=== PATIENT | female | born 1975 | race Caucasian/White ===

== ENCOUNTER 2017-03-03 16:34 | Emergency (ER) | payer SELFPAY ==
[2017-03-03] MEDS ORDERED: ASPIRIN 81 MG TABLET, CHEWABLE PO ONE (17:14)
[2017-03-03] MEDS ORDERED: MECLIZINE HCL 25 MG TABLET PO ONE (17:15)
[2017-03-03] MEDS ORDERED: IPRATROPIUM/ALBUTEROL 0.5-2.5 MG/3 ML AMPUL NEB ONE (17:15)
--- NOTE | 2017-03-03 17:16 | ER Document Report ---
ED Medical Screen (RME) - General Chief Complaint: Chest Pain Stated Complaint: CHEST PAIN,BACK PAIN,SHORTNESS OF BREATH Time Seen by Provider: 03/03/17 17:14 Mode of Arrival: Ambulatory Information source: Patient Notes: Patient presents complaining of productive cough for the past 3 months. Patient presents with chest pain that she describes as burning for the past 3 days. Patient does report shortness of breath and feeling off balance. Patient does have a history of asthma and COPD and is currently out of her albuterol inhaler. TRAVEL OUTSIDE OF THE [place] IN LAST 30 DAYS: No - Related Data Allergies/Adverse Reactions: latex [Latex] Allergy (Verified 03/03/17 16:47) Hives Past Medical History Pulmonary Medical History: Reports: Hx COPD Renal/ Medical History: Denies: Hx Peritoneal Dialysis Psychiatric Medical History: Reports: Hx Anxiety, Hx Bipolar Disorder, Hx Depression Past Surgical History: Reports: Hx Tubal Ligation - Immunizations Hx Diphtheria, Pertussis, Tetanus Vaccination: - unknown Physical Exam - Vital signs Vitals: Temp Pulse Resp BP Pulse Ox 97.9 F 79 20 154/91 H 98 03/03/17 16:44 03/03/17 16:44 03/03/17 16:44 03/03/17 16:44 03/03/17 16:44 - Respiratory Respiratory status: No respiratory distress Breath sounds: Nonproductive cough, Wheezing - faint Chest palpation: Tender - left anterior chest wall tenderness Course - Vital Signs Vital signs: Temp Pulse Resp BP Pulse Ox 97.9 F 79 20 154/91 H 98 03/03/17 16:44 03/03/17 16:44 03/03/17 16:44 03/03/17 16:44 03/03/17 16:44
[2017-03-03 18:11] LABS: ABSOLUTE EOSINOPHILS # (AUTO) 0.1 10^3/uL (0.0-0.6); ABSOLUTE LYMPHOCYTES (AUTO) 2.9 10^3/uL (0.5-4.7); ABSOLUTE MONOCYTES (AUTO) 0.4 10^3/uL (0.1-1.4); ABSOLUTE NEUT (AUTO) 4.2 10^3/uL (1.7-8.2); BASOPHILS % (AUTO) 0.6 % (0-2); EOSINOPHILS % (AUTO) 0.9 % (0-6); HEMATOCRIT 40.4 % (36.0-47.0); HEMOGLOBIN 13.6 g/dL (12.0-15.5); HGB HCT DIFFERENCE 0.4; MEAN CORPUSCULAR HEMOGLOBIN 29.5 pg (27.0-33.4); MEAN CORPUSCULAR HGB CONC 33.7 g/dL (32.0-36.0); MEAN CORPUSCULAR VOLUME 88 fl (80-97); MONOCYTES % (AUTO) 5.2 % (3-13); RED BLOOD COUNT 4.62 10^6/uL (3.72-5.28); RED CELL DISTRIBUTION WIDTH 14.4 % (11.5-14.0); SEGMENTED NEUTROPHILS % (AUTO) 55.3 % (42-78); WHITE BLOOD COUNT 7.6 10^3/uL (4.0-10.5)
[2017-03-03 18:30] LABS: ALANINE AMINOTRANSFERASE 29 U/L (9-52); ALBUMIN 4.8 g/dL (3.5-5.0); ALKALINE PHOSPHATASE 54 U/L (38-126); ANION GAP 11 (5-19); ASPARTATE AMINO TRANSFERASE 17 U/L (14-36); BILIRUBIN,DIRECT 0.4 mg/dL (0.0-0.4); BILIRUBIN,TOTAL 0.5 mg/dL (0.2-1.3); BLOOD UREA NITROGEN 9 mg/dL (7-20); CALCIUM 10.1 mg/dL (8.4-10.2); CARBON DIOXIDE 26 mmol/L (22-30); CHLORIDE 105 mmol/L (98-107); CREATINE KINASE 65 U/L (30-135); CREATININE RESULT 0.75 mg/dL (0.52-1.25); GLUCOSE 102 mg/dL (75-110); POTASSIUM 4.1 mmol/L (3.6-5.0); TOTAL PROTEIN 7.7 g/dL (6.3-8.2)
--- NOTE | 2017-03-03 18:33 | RADIOLOGY REPORT (SQ) ---
EXAM DESCRIPTION: CHEST PA/LAT COMPLETED DATE/TIME: 03/03/2017 6:07 pm REASON FOR STUDY: cp, cough COMPARISON: 09/13/2012 EXAM PARAMETERS: NUMBER OF VIEWS: two views TECHNIQUE: Digital Frontal and Lateral radiographic views of the chest acquired. RADIATION DOSE: NA LIMITATIONS: none FINDINGS: LUNGS AND PLEURA: No opacities, masses or pneumothorax. No pleural effusion. MEDIASTINUM AND HILAR STRUCTURES: No masses or contour abnormalities. HEART AND VASCULAR STRUCTURES: Heart normal size. No evidence for failure. BONES: No acute findings. HARDWARE: None in the chest. OTHER: No other significant finding. IMPRESSION: NO SIGNIFICANT RADIOGRAPHIC FINDING IN THE CHEST. TECHNICAL DOCUMENTATION: JOB ID: [id number] 2022 [employer]- All Rights Reserved
[2017-03-03 18:42] LABS: CREATINE KINASE MB 0.92 ng/mL (<4.55)
[2017-03-03 18:43] LABS: TROPONIN I < 0.012 ng/mL
[2017-03-03] MEDS ORDERED: DEXAMETHASONE 4 MG TABLET PO ONE (19:30)
[2017-03-03] MEDS ORDERED: ALBUTEROL SULFATE HFA (90 MCG/PUFF) 8 GM MDI (1 MDI/ER DISP) IH PRN (19:31)
[2017-03-03] MEDS ORDERED: BENZONATATE 100 MG CAPSULE PO ONE (19:31)
--- NOTE | 2017-03-03 20:49 | ER Document Report ---
ED General - General Chief Complaint: Chest Pain Stated Complaint: CHEST PAIN,BACK PAIN,SHORTNESS OF BREATH Time Seen by Provider: 03/03/17 17:14 Mode of Arrival: Ambulatory Notes: Patient is a 41-year-old female with a past medical history asthma, ongoing tobacco abuse who presents with 3 months of persistent, nonproductive cough. Patient states that she coughs throughout the day, often worse after smoking. She states that sometimes she coughs so vigorously that she occasionally develops a diffuse chest wall discomfort that sometimes lasts for several hours. She also notes associated back pain with vigorous episodes of coughing. She has been trying [id number] cough medicines without any significant relief her symptoms. She has not seen her primary care doctor regarding today' s concerns. She does note that she has run out of her albuterol inhaler at home did feel like this occasionally help when she would take it. She has not had any vomiting, fever, diarrhea, or altered mental status. TRAVEL OUTSIDE OF THE [place] IN LAST 30 DAYS: No - Related Data Allergies/Adverse Reactions: latex [Latex] Allergy (Verified 03/03/17 16:47) Hives Past Medical History - General Information source: Patient - Social History Smoking Status: Current Every Day Smoker Frequency of alcohol use: None Drug Abuse: None Lives with: Spouse/Significant other Family History: Reviewed & Not Pertinent Patient has suicidal ideation: No Patient has homicidal ideation: No Pulmonary Medical History: Reports: Hx COPD Renal/ Medical History: Denies: Hx Peritoneal Dialysis Psychiatric Medical History: Reports: Hx Anxiety, Hx Bipolar Disorder, Hx Depression Past Surgical History: Reports: Hx Tubal Ligation - Immunizations Hx Diphtheria, Pertussis, Tetanus Vaccination: - unknown Review of Systems - Review of Systems Notes: Constitutional: Negative for fever. HENT: Negative for sore throat. Eyes: Negative for visual changes. Cardiovascular: Negative for chest pain. Respiratory: Positive for cough Gastrointestinal: Negative for abdominal pain, vomiting or diarrhea. Genitourinary: Negative for dysuria. Musculoskeletal: Negative for back pain. Skin: Negative for rash. Neurological: Negative for headaches, weakness or numbness. 10 point ROS negative except as marked above and in HPI. Physical Exam - Vital signs Vitals: Temp Pulse Resp BP Pulse Ox 97.9 F 79 20 154/91 H 98 03/03/17 16:44 03/03/17 16:44 03/03/17 16:44 03/03/17 16:44 03/03/17 16:44 Interpretation: Hypertensive Notes: PHYSICAL EXAMINATION: GENERAL: Well-appearing, well-nourished and in no acute distress. HEAD: Atraumatic, normocephalic. EYES: Pupils equal round and reactive to light, extraocular movements intact, sclera anicteric, conjunctiva are normal. ENT: nares patent, oropharynx clear without exudates. Moist mucous membranes. NECK: Normal range of motion, supple without lymphadenopathy LUNGS: Breath sounds clear to auscultation bilaterally and equal. No wheezes rales or rhonchi. HEART: Regular rate and rhythm without murmurs ABDOMEN: Soft, nontender, normoactive bowel sounds. No guarding, no rebound. No masses appreciated. EXTREMITIES: Normal range of motion, no pitting or edema. No cyanosis. NEUROLOGICAL: No focal neurological deficits. Moves all extremities spontaneously and on command. PSYCH: Normal mood, normal affect. SKIN: Warm, Dry, normal turgor, no rashes or lesions noted. Course - Re-evaluation Re-evalutation: 03/03/17 20:47 Patient presents with a clinical history and exam most consistent with an acute viral bronchitis. Patient is overall well in appearance without tachypnea, hypoxemia, tachycardia, or difficulty with ambulation. Breath sounds are clear bilaterally. No fever. Patient does have additional signs of upper respiratory infection including nasal congestion, sore throat, and sinus pressure. No indication for labs or imaging. Will treat with bronchodilators, single dose of dexamethasone, and Tessalon Perles. At this time will discharge with return precautions and follow-up recommendations. Verbal discharge instructions given a the bedside and opportunity for questions given. Medication warnings reviewed. Patient is in agreement with this plan and has verbalized understanding of return precautions and the need for primary care follow-up in the next 24-72 hours. - Vital Signs Vital signs: Temp Pulse Resp BP Pulse Ox 97.7 F 57 L 18 116/72 98 03/03/17 21:19 03/03/17 21:19 03/03/17 21:19 03/03/17 21:19 03/03/17 21:19 - Laboratory Result Diagrams: 03/03/17 17:55 03/03/17 17:55 Laboratory results interpreted by me: 03/03/17 17:55 RDW 14.4 H - Diagnostic Test Radiology reviewed: Image reviewed, Reports reviewed Radiology results interpreted by me: 03/04/17 03:54 Chest x-ray: No acute infiltrate or pneumothorax Discharge - Discharge Clinical Impression: Bronchitis, Tobacco abuse Condition: Good Disposition: HOME, SELF-CARE Additional Instructions: You were seen for symptoms most consistent with bronchitis. This can take up to 12 weeks to fully resolve. This is generally due to a viral infection. Please follow-up with your primary doctor in the next 2-3 days. Return if you develop worsening cough, vomiting, fever >100.4, pass out, begin coughing blood, or have any other symptoms that are concerning to you. Please use the medications prescribed today as directed. Prescriptions: Benzonatate [Tessalon Perles 100 mg Capsule] 100 mg PO Q8HP PRN #40 capsule PRN Reason:
[2017-03-03 21:20] VITALS: BP 116/72
--- NOTE | 2017-03-04 13:39 | EKG REPORT ---
SEVERITY:- NORMAL ECG - SINUS RHYTHM : Confirmed by: Bob Hood MD 04-Mar-2017 13:38:56
== END 2017-03-03 21:20 | disposition home or self-care (01) ==
LOC: ER 16:34
DX: J40 Bronchitis, not specified as acute or chronic (principal); R07.9 Chest pain, unspecified; F17.200 Nicotine dependence, unspecified, uncomplicated; Z91.040 Latex allergy status; Z98.51 Tubal ligation status
CPT/HCPCS: 93005; 94640; 99285; 36415; 82553; 82550; 85025; 80053; 84484; 71020; 93010; J3490; J7620

== ENCOUNTER 2017-05-15 12:29 | Emergency (ER) | payer SELFPAY ==
--- NOTE | 2017-05-15 15:01 | ER Document Report ---
HPI - HPI Pain Level: 1 Notes: Patient is a 42-year-old female with a history of asthma and COPD who presents ED complaining of wheezing and a dry nonproductive cough with occasional nasal discharge over the last 4-5 days. Patient has also developed a rash to her left medial thigh 2-3 days. Patient states that the rash is painful and is only on that one side. Patient states that she does shave in that area as well. Patient states that she cannot wear underwear because of the sensitivity the pain that is associated with the rash. Patient states that she is most concerned about the rash as she has had issues with wheezing and a dry cough chronically. She still eating and drinking without any difficulties. She is urinating normally and having normal bowel movements. Patient has not had any vaginal odor/discharge/bleeding. Patient is still ambulatory without any chest pain or dyspnea on exertion. She does have an inhaler at home, but is running well and would like another albuterol inhaler today. Denies any headache, fever , neck pain, sore throat, chest pain, palpitations, syncope, shortness of breath , dyspnea, abdominal pain, nausea/vomiting/diarrhea, urinary retention, dysuria , hematuria, loss of control of bowel or bladder, numbness/tingling, saddle anesthesia, muscle paralysis/weakness. Pt has had chicken pox in the past. - ROS Systems Reviewed and Negative: Yes All other systems reviewed and negative - REPRODUCTIVE Reproductive: DENIES: : Past Medical History - Social History Smoking Status: Current Every Day Smoker Family History: Reviewed & Not Pertinent Pulmonary Medical History: Reports: Hx COPD Renal/ Medical History: Denies: Hx Peritoneal Dialysis Psychiatric Medical History: Reports: Hx Anxiety, Hx Bipolar Disorder, Hx Depression Past Surgical History: Reports: Hx Tubal Ligation - Immunizations Hx Diphtheria, Pertussis, Tetanus Vaccination: - unknown Vertical Provider Document - CONSTITUTIONAL Agree With Documented VS: Yes Notes: PHYSICAL EXAMINATION: GENERAL: Well-appearing, well-nourished and in no acute distress. A&Ox4. Answers questions appropriately. Moves comfortably w/o notable distress HEAD: Atraumatic, normocephalic. EYES: Pupils equal round and reactive to light, extraocular movements intact, sclera anicteric, conjunctiva are normal. ENT: EAC clear b/l. TM's intact b/l without erythema, fluid, or perforation. Nares patent and with clear discharge. oropharynx no erythema without exudates. 2+ tonsilar hypertrophy without erythema or exudate. No palatine shift. Uvula midline. No tongue protrusion. No drooling, hoarseness, or airway compromise. Moist mucous membranes. No sinus tenderness. NECK: Normal range of motion, supple without lymphadenopathy. No rigidity/ meningismus. LUNGS: wheezing b/l. no crackles. no retractions or labored breathing. HEART: Regular rate and rhythm without murmurs, rubs, gallops. ABDOMEN: Soft, nontender, nondistended abdomen. No guarding, no rebound. No masses appreciated. Normal bowel sounds present. No CVA tenderness bilaterally. No hepatosplenomegaly. NEUROLOGICAL: Normal speech, normal gait. Normal sensory, motor exams PSYCH: Normal mood, normal affect. SKIN: small grouped erythemic maculopapular/vesicular lesions to the medial thigh consistent with herpes zoster. - INFECTION CONTROL TRAVEL OUTSIDE OF THE [place] IN LAST 30 DAYS: No - RESPIRATORY O2 Sat by Pulse Oximetry: 96 Course - Re-evaluation Re-evalutation: 05/15/17 15:01 Patient is an afebrile, well-hydrated, 42-year-old female who presents to the ED with an acute URI as well as herpes zoster. Vitals are stable. PE is otherwise unremarkable. No labs or imaging warranted at this time based on H& P. Low suspicion for any ACS, PE, pneumothorax, pericarditis, dissection, respiratory compromise, severe dehydration, sepsis, meningitis, nec fasciitis, or other systemic emergent condition at this time. Patient is aware that her condition can change from initial presentation and she needs to monitor symptoms closely and seek medical attention for any acute changes. Decadron given IM today to help with her wheezing. I will send her home with a prescription for Valtrex to take as directed. Recommend conservative measures for symptoms. Recheck with your PCM in 3-5 days. Return to the ED with any worsening/concerning symptoms otherwise as reviewed in discharge. Patient is in agreement. - Vital Signs Vital signs: Temp Pulse Resp BP Pulse Ox 98.5 F 77 18 147/92 H 96 05/15/17 12:47 05/15/17 12:47 05/15/17 12:47 05/15/17 12:47 05/15/17 12:47 Discharge - Discharge Clinical Impression: Acute URI Herpes zoster Qualifiers: Herpes zoster complications: without complications Qualified Code(s): B02.9 - Zoster without complications Condition: Stable Disposition: HOME, SELF-CARE Instructions: Shingles ([facility]), Upper Respiratory Illness ([facility]) Additional Instructions: Maintain adequate fluid intake Take meds as directed tylenol/ibuprofen as needed over the counter cold medication as needed for symptoms Humidified air may help Wash your hands regularly Wear a mask when coughing Stay away from women and other people with poor immune systems (really young and really old, cancer patients, etc) F/u: with your PCM in 3-5 days for a recheck Return to the ED with any fever, worsening pain, chest pain, palpitations, syncope, worsening B[place]RE[place], neck pain/stiffness, shortness of breath, wheezing, drooling, trouble swallowing/breathing, abdominal pain, n/v/d, rash, or worsening/concerning symptoms otherwise. Prescriptions: Albuterol Sulfate [Proair HFA Inhalation Aerosol 8.5 gm MDI] 2 puff IH Q4H PRN # 1 mdi PRN Reason: Valacyclovir HCl [Valacyclovir] 1,000 mg PO TID #21 tablet Forms: Elevated Blood Pressure Referrals: [facility] [Provider Group] - Follow up as needed [facility] [Provider Group] - Follow up as needed
[2017-05-15] MEDS ORDERED: DEXAMETHASONE SOD PHOS INJ 10 MG/1 ML VIAL IM ONE (15:04)
[2017-05-15 15:19] VITALS: BP 154/86
== END 2017-05-15 15:24 | disposition home or self-care (01) ==
LOC: ER 12:29
DX: J06.9 Acute upper respiratory infection, unspecified (principal); B02.9 Zoster without complications; J35.1 Hypertrophy of tonsils; J44.9 Chronic obstructive pulmonary disease, unspecified; R05 Cough; F17.200 Nicotine dependence, unspecified, uncomplicated
CPT/HCPCS: 99282; 96372; J1100

== ENCOUNTER 2020-02-18 19:11 | Emergency (ER) | payer SELFPAY ==
[2020-02-18] MEDS ORDERED: DEXAMETHASONE SOD PHOSPHATE INJ 4 MG/1 ML VIAL IM ONE (20:38)
[2020-02-18] MEDS ORDERED: ALBUTEROL SULFATE 0.083% NEB 2.5 MG/3 ML AMPUL NEB ONE (20:39)
[2020-02-18] MEDS ORDERED: IPRATROPIUM/ALBUTEROL 0.5-2.5 MG/3 ML AMPUL NEB ONE (20:39)
--- NOTE | 2020-02-18 20:41 | ER Document Report ---
ED Medical Screen (RME) - General Chief Complaint: Chest Pain Stated Complaint: SIDE PAIN Time Seen by Provider: 02/18/20 20:28 Mode of Arrival: Ambulatory Information source: Patient Notes: 44-year-old female presents to ED for severe right chest flank and back pain. She states it started about 3 weeks ago when she ran out of her rescue inhaler. She states she has been using one of her mother's albuterol inhalers. She states she does have COPD and asthma and she gets like this about once a year. She states she is very short of breath and winded but this is her normal this time a year. She denies any fevers any runny nose any loss of sense of smell or taste. She does smoke a half to a pack a day drinks occasionally and also uses marijuana. I have ordered her steroids and chest x-ray as well as blood work and as soon as she gets in a room I want her to get DuoNeb and albuterol. I have greeted and performed a rapid initial assessment of this patient. A comprehensive ED assessment and evaluation of the patient, analysis of test results and completion of medical decision making process will be conducted by an additional ED providers. TRAVEL OUTSIDE OF THE [place] IN LAST 30 DAYS: No - Related Data Allergies/Adverse Reactions: latex [Latex] Allergy (Verified 05/15/17 12:30) Hives Home Medications: symbicort, albuterol Past Medical History - Social History Chew tobacco use (# tins/day): No Frequency of alcohol use: Occasional Pulmonary Medical History: Reports: Hx Bronchitis, Hx COPD Renal/ Medical History: Denies: Hx Peritoneal Dialysis Psychiatric Medical History: Reports: Hx Anxiety, Hx Bipolar Disorder, Hx Depression Past Surgical History: Reports: Hx Gynecologic Surgery - D & C, Hx Tubal Ligation - Immunizations Hx Diphtheria, Pertussis, Tetanus Vaccination: - unknown Physical Exam - Vital signs Vitals: Temp Pulse Resp BP Pulse Ox 98.2 F 66 17 125/76 99 02/18/20 19:52 02/18/20 19:52 02/18/20 19:52 02/18/20 19:52 02/18/20 19:52 Course - Vital Signs Vital signs: Temp Pulse Resp BP Pulse Ox 98.2 F 66 17 125/76 99 02/18/20 19:52 02/18/20 19:52 02/18/20 19:52 02/18/20 19:52 02/18/20 19:52
--- NOTE | 2020-02-18 21:31 | RADIOLOGY REPORT (SQ) ---
CLINICAL INDICATION: chest pain to right copd. TECHNIQUE: PA and lateral views were obtained of the chest COMPARISON: March 03, 2017. FINDINGS: The cardiomediastinal silhouette is top normal. The lungs demonstrate chronic parenchymal lung change. No acute process or adverse change. No evidence of effusion or pneumothorax. Visualized bones are unremarkable. . IMPRESSION: Chronic change, no adverse change .
[2020-02-18 22:27] LABS: ABSOLUTE EOSINOPHILS # (AUTO) 0.1 10^3/uL (0.0-0.6); ABSOLUTE NEUT (AUTO) 3.8 10^3/uL (1.7-8.2); EOSINOPHILS % (AUTO) 1.7 % (0-6); HEMOGLOBIN 14.7 g/dL (12.0-15.5); TOTAL CELLS COUNTED % (AUTO) 100 %; WHITE BLOOD COUNT 7.2 10^3/uL (4.0-10.5)
[2020-02-18 22:39] LABS: ABSOLUTE BASOPHILS # (AUTO) 0.1 10^3/uL (0.0-0.2); ABSOLUTE LYMPHOCYTES (AUTO) 2.8 10^3/uL (0.5-4.7); ABSOLUTE MONOCYTES (AUTO) 0.4 10^3/uL (0.1-1.4); HEMATOCRIT 42.8 % (36.0-47.0); LYMPHOCYTES % (AUTO) 38.5 % (13-45); MEAN CORPUSCULAR HEMOGLOBIN 30.6 pg (27.0-33.4); MEAN CORPUSCULAR HGB CONC 34.4 g/dL (32.0-36.0); MEAN CORPUSCULAR VOLUME 89 fl (80-97); MONOCYTES % (AUTO) 5.8 % (3-13)
[2020-02-18 22:41] LABS: ALBUMIN 4.9 g/dL (3.5-5.0); ALKALINE PHOSPHATASE 74 U/L (38-126); ANION GAP 9 (5-19); ASPARTATE AMINO TRANSFERASE 28 U/L (14-36); BILIRUBIN,DIRECT 0.3 mg/dL (0.0-0.4); BILIRUBIN,TOTAL 0.5 mg/dL (0.2-1.3); BLOOD UREA NITROGEN 13 mg/dL (7-20); CALCIUM 9.8 mg/dL (8.4-10.2); CARBON DIOXIDE 28 mmol/L (22-30); CHLORIDE 103 mmol/L (98-107); GLUCOSE 98 mg/dL (75-110); POTASSIUM 4.7 mmol/L (3.6-5.0)
[2020-02-18 23:18] LABS: PLATELET COUNT 260 10^3/uL (150-450)
--- NOTE | 2020-02-19 03:15 | ER Document Report ---
ED General - General Chief Complaint: Chest Pain Stated Complaint: SIDE PAIN Time Seen by Provider: 02/18/20 20:28 Primary Care Provider: FLORENCIO BLACK FNP-C [Primary Care Provider] - Follow up as needed Mode of Arrival: Ambulatory Notes: Patient is a 44-year-old female who comes emergency department for chief complaint of 3 weeks of cough and congestion. She denies fever. She reports intermittent wheezing. She states she ran out of her Symbicort, albuterol inhaler, and albuterol nebulizer. She has COPD and continues to smoke. She states that with the coughing she has developed right-sided rib pain which is present with cough and with movement. She denies chest pain otherwise. She denies dizziness, nausea, vomiting, or any other complaints. She states she does not currently have wheezing or shortness of breath. Patient states she is very familiar with this and annually gets seasonal congestion, allergic symptoms, and bronchitis. Patient states she is coughing so much at night she cannot sleep. TRAVEL OUTSIDE OF THE [place] IN LAST 30 DAYS: No - Related Data Allergies/Adverse Reactions: latex [Latex] Allergy (Verified 05/15/17 12:30) Hives Home Medications: symbicort, albuterol Past Medical History - General Information source: Patient - Social History Smoking Status: Current Every Day Smoker Chew tobacco use (# tins/day): No Smoking Education Provided: Yes - <3 min Frequency of alcohol use: Occasional Lives with: Family Family History: Reviewed & Not Pertinent Pulmonary Medical History: Reports: Hx Bronchitis, Hx COPD Renal/ Medical History: Denies: Hx Peritoneal Dialysis Psychiatric Medical History: Reports: Hx Anxiety, Hx Bipolar Disorder, Hx Depression Past Surgical History: Reports: Hx Gynecologic Surgery - D & C, Hx Tubal Ligation - Immunizations Hx Diphtheria, Pertussis, Tetanus Vaccination: - unknown Review of Systems - Review of Systems Constitutional: No symptoms reported EENT: See HPI Cardiovascular: No symptoms reported Respiratory: See HPI Gastrointestinal: No symptoms reported Genitourinary: No symptoms reported Female Genitourinary: No symptoms reported Musculoskeletal: No symptoms reported Skin: No symptoms reported Hematologic/Lymphatic: No symptoms reported Neurological/Psychological: No symptoms reported Physical Exam - Vital signs Vitals: Temp Pulse Resp BP Pulse Ox 98.2 F 66 17 125/76 99 02/18/20 19:52 02/18/20 19:52 02/18/20 19:52 02/18/20 19:52 02/18/20 19:52 - Notes Notes: GENERAL: Alert, interactive, does not appear to be in distress but appears tired with dark circles under her eyes HEAD: Normocephalic, atraumatic. EYES: Pupils equal, round, and reactive to light. Extraocular movements intact. ENT: Oral mucosa moist, tongue midline. Oropharynx unremarkable. Airway patent. Some mild nasal congestion, sinuses non-tender, ear canals unremarkable, TM's intact. NECK: Full range of motion. Supple. Trachea midline. No lymphadenopathy. LUNGS: Decreased breath sounds bilaterally and occasional painful coughing episodes but no wheezing, lungs clear, no respiratory distress or tachypnea. HEART: Regular rate and rhythm. No murmur ABDOMEN: Soft, non-tender. Non-distended. Bowel sounds present in all 4 quadrants. GENITOURINARY: Deferred EXTREMITIES: Moves all 4 extremities spontaneously. No edema, normal radial and dorsalis pedis pulses bilaterally. No cyanosis. BACK: no cervical, thoracic, lumbar midline tenderness. No saddle anesthesia, normal distal neurovascular exam. Moves all extremities in full range of motion. NEUROLOGICAL: Alert and oriented x3. Normal speech. Cranial nerves II through XII grossly intact. Strength 5/5 in all extremities. PSYCH: Normal affect, normal mood. SKIN: Warm, dry, normal turgor. No rashes or lesions noted. Course - Re-evaluation Re-evalutation: Patient has tenderness along the right ribs which is causing her to wince, have a painful cough, and have pain with movement. X-ray unremarkable. CBC and chemistry from triage reviewed and unremarkable. EKG unremarkable. Patient is requesting medication refills and treatment of her symptoms. She is requesting discharge. She has had a long wait unfortunately. Based on her evaluation I do not feel additional work-up is indicated, this appears to be very specifically bronchitis, right-sided rib pain, probably mild COPD exacerbation. I offered COVID-19 testing but patient declined. Patient will have refill of her medi cations, symptom management, discussed precautions with him, I discussed follow- up and return precautions. Patient states appreciation and agreement. - Vital Signs Vital signs: Temp Pulse Resp BP Pulse Ox 98.2 F 66 20 133/91 H 95 02/19/20 04:08 02/18/20 19:52 02/19/20 04:08 02/19/20 04:08 02/19/20 04:08 - Laboratory Result Diagrams: 02/18/20 22:00 02/18/20 22:00 - EKG Interpretation by Me Additional EKG results interpreted by me: EKG shows sinus rhythm at a rate of 54, QTc 444, normal axis, no T wave inversions or ST segment changes in consecutive leads Discharge - Discharge Clinical Impression: Chest wall pain, Cough, Tobacco abuse Condition: Stable Disposition: HOME, SELF-CARE Instructions: Oral Narcotic Medication ([facility]) Additional Instructions: Your x-ray and laboratory work-up do not show any concerning findings. Your evaluation is most consistent with bronchitis and chest wall strain from the coughing. I recommend the albuterol/inhaler/nebulizer if needed, thesteroids as prescribed as we discussed, the muscle asked if needed, the cough medication if needed using precautions as we discussed. Stop smoking. Follow-up with primary care. Return if you worsen including difficulty breathing, spiking fevers, severe worsening pain, or any other concerning or worsening symptoms. Prescriptions: Hydrocodone Bit/Homatropine [Hycodan Syrup 5-1.5 mg/5 ml Ud Cup] 5 ml PO Q4HP PRN #120 ml PRN Reason: Cyclobenzaprine HCl 1 - 2 tab PO Q8H PRN #20 tablet PRN Reason: Prednisone [Deltasone 10 mg Tablet] 10 mg PO ASDIR PRN #21 tablet PRN Reason: Albuterol Sulfate [Proair HFA Inhalation Aerosol 8.5 gm MDI] 2 puff IH Q4H PRN #1 mdi PRN Reason: Albuterol Sulfate [Proventil 0.5% Neb 2.5 mg/0.5 ml Vial.neb] 2.5 mg NEB Q4H PRN #30 vial.neb PRN Reason: Budesonide/Formoterol Fumarate [Symbicort Hfa 160-4.5 Mcg Inhaler 6 gm] 1 puff I H Q12 #1 inhaler Forms: Smoking Cessation Education Referrals: FLORENCIO BLACK FNP-C [Primary Care Provider] - Follow up as needed
[2020-02-19] MEDS ORDERED: IPRATROPIUM/ALBUTEROL 0.5-2.5 MG/3 ML AMPUL NEB ONE (03:30)
[2020-02-19 04:19] VITALS: BP 133/91
--- NOTE | 2020-02-19 09:42 | EKG REPORT ---
SEVERITY:- NORMAL ECG - SINUS RHYTHM : Confirmed by: Huong Duncan 19-Feb-2020 09:41:45
== END 2020-02-19 04:19 | disposition home or self-care (01) ==
LOC: ER 19:11
DX: R07.89 Other chest pain (principal); J44.9 Chronic obstructive pulmonary disease, unspecified; R07.81 Pleurodynia; R05 Cough; F17.200 Nicotine dependence, unspecified, uncomplicated; Z91.040 Latex allergy status; R09.81 Nasal congestion
CPT/HCPCS: 93005; 99285; 96372; 36415; 85025; 80053; 71046; 93010; J1100